=== PATIENT | male | born 1990 | race Caucasian/White ===

== ENCOUNTER 2021-07-23 23:53 | Emergency (ER) | payer SELFPAY ==
[~2021-07-23] VITALS: Ht 182.9 cm; Wt 181.8 kg
[2021-07-23 23:58] VITALS: TEMP 98.2
[2021-07-24] MEDS ORDERED: CLEOCIN HCL300 MG PO (00:44)
[2021-07-24 00:52] VITALS: BP 148/57; PULSE 76
== END 2021-07-24 00:52 | disposition home or self-care (01) ==
LOC: COL.ER 23:53
DX: K08.89 Other specified disorders of teeth and supporting structures (principal); E66.01 Morbid (severe) obesity due to excess calories

== ENCOUNTER 2021-10-02 14:18 | Emergency (ER) | payer OTHER ==
[~2021-10-02] VITALS: Ht 182.9 cm; Wt 181.8 kg
[~2021-10-02 14:18] MED LIST: CLEOCIN HCL300 MG PO
[2021-10-02 14:50] VITALS: BP 122/55; PULSE 83; TEMP 98.3
[2021-10-02] MEDS ORDERED: LOPRESSOR100 MG PO (15:05)
[2021-10-02 15:32] LABS: BASO # 0.1 K/mm3 (0.0-0.2); BASO % 0.4 % (0.0-2.0); EOS # 0.2 K/mm3 (0.0-0.7); EOS % 1.2 % (0.0-4.0); GRAN # 9.8 K/mm3 (1.4-6.5); GRAN % 65.7 % (42.2-75.2); LYMPH # 3.7 K/mm3 (1.2-3.4); LYMPH % 24.4 % (20.0-51.0); MEAN CELL VOLUME 91 fl (80.0-100.0); MEAN CORPUSCULAR HEMOGLOBIN 30 pg (27-31); MEAN CORPUSCULAR HGB CONC 33 g/dl (33.0-37.0); MEAN PLATELET VOLUME 10.3 fl (7.4-10.4); MONO # 1.2 K/mm3 (0.1-0.6); MONO % 7.8 % (1.7-9.3); PLATELET COUNT 339 K/mm3 (130-400); RED BLOOD COUNT 4.93 M/mm3 (4.20-5.60)
[2021-10-02 15:44] LABS: STREP SCREEN NEGATIVE
[2021-10-02 15:50] LABS: ALBUMIN 3.6 gm/dL (3.5-5.0); BILIRUBIN,TOTAL 0.7 mg/dL (0.2-1.2); C-REACTIVE PROTEIN 0.92 mg/dL (0.00-0.50); CREATININE, serum 0.73 mg/dL (0.72-1.25); POTASSIUM 4.1 mmol/L (3.5-4.5); TOTAL PROTEIN 7.2 gm/dL (6.2-8.1)
[2021-10-02 15:59] LABS: MONOSCREEN NEGATIVE
[2021-10-02] MEDS ORDERED: AMOXICILLIN 8751 TAB PO (17:25)
== END 2021-10-02 17:45 | disposition home or self-care (01) ==
LOC: COL.ER 14:18
PROVIDERS: Nurse Practitioner
DX: J03.90 Acute tonsillitis, unspecified (principal); K02.9 Dental caries, unspecified; E66.9 Obesity, unspecified; Z20.822 Contact with and (suspected) exposure to COVID-19
CPT/HCPCS: J1100; Q9967